=== PATIENT | female | born 1990 | race Two or more races ===

== ENCOUNTER → 2025-05-06 | Outpatient (CLI) | payer BC, SELFPAY ==
[2025-05-06 11:38] LABS: Collection Type, Urine Clean Catch
[2025-05-06 12:52] LABS: Basophils # (Auto) 0.0 Thou/mm3 (0.0-0.2); Basophils % (Auto) 1 % (0-2.5); Eosinophils # (Auto) 0.2 Thou/mm3 (0.0-0.5); Eosinophils % (Auto) 2 % (0-10); Hematocrit 36.7 % (36.0-46.0); Hemoglobin 11.9 g/dL (12.0-16.0); Immature Granulocytes Auto 0.04 Thou/mm3 (0.00-0.00); Lymphocytes # (Auto) 2.0 Thou/mm3 (1.0-4.8); Lymphocytes % (Auto) 32 % (10-50); Mean Corpuscular HGB Conc 32.4 g/dl (31.0-37.0); Mean Corpuscular Hemoglobin 24.8 pg (25.0-35.0); Mean Corpuscular Volume 77 fL (80-100); Monocytes # (Auto) 0.4 Thou/mm3 (0.0-0.8); Monocytes % (Auto) 7 % (0-12); Neutrophils # (Auto) 3.5 Thou/mm3 (1.8-7.7); Neutrophils % (Auto) 58 % (37-80); Nucleated Red Blood Cell # 0.00 Thou/mm3 (0.00-0.00); Nucleated Red Blood Cell % 0 /100 WBC (0); Platelet Count 249 Thou/mm3 (140-440); RDW Standard Deviation 38.7 fL (36.4-46.3); Red Blood Count 4.79 Miln/mm3 (4.00-5.20); White Blood Count 6.2 Thou/mm3 (3.6-11.0)
[2025-05-06 13:10] LABS: Alanine Aminotransferase 41 U/L (10-49); Albumin, Serum 4.4 gm/dL (3.5-5.0); Albumin/Globulin Ratio 1.6 (1.2-2.2); Alkaline Phosphatase 37 U/L (46-116); Anion Gap 10 (7-16); Aspartate Amino Transferase 26 U/L (0-34); BUN/Creatinine Ratio 13 Ratio (12-20); Bilirubin,Total 0.6 mg/dL (0.3-1.2); Blood Urea Nitrogen 10 mg/dL (9-23); Calcium 9.2 mg/dL (8.3-10.6); Calcium (Corrected) 9.2 mg/dL (8.5-10.1); Carbon Dioxide 25.2 mMol/L (20.0-31.0); Cardiac Risk Estimate 2.5 RATIO (3.7-5.6); Chloride 107 mMol/L (98-107); Cholesterol 171 mg/dL (132-200); Creatinine (Component) 0.8 mg/dL (0.6-1.3); Globulin 2.8 gm/dL (2.3-3.5); Glucose 95 mg/dL (74-106); HDL Cholesterol 68 mg/dL (40-60); LDL Cholesterol,Calculated 78 mg/dL (0-130); Osmolality,Calculated 282 (275-295); Potassium 3.9 mMol/L (3.4-5.1); Sodium 142 mMol/L (136-145); Total Protein 7.2 gm/dL (5.7-8.2); Triglycerides 123 mg/dL (30-150); eGFR > 60 See Note
[2025-05-06 13:38] LABS: Bacteria,Urine Rare; Bilirubin,Urine Negative (Negative); Blood,Urine 1+ (Negative); Clarity,Urine Clear (Clear/Hazy); Color,Urine Lt-Yellow (Lt Yel-Yel); Glucose, Urine Negative (Negative); Ketones,Urine Negative (Negative); Leukocyte Esterase,Urine Positive (Negative); Nitrite,Urine Negative (Negative); PH,Urine 5.0 (5.0-7.0); Protein,Urine Negative (Neg - Trace); RBC,Urine 1 /hpf (0-3); Specific Gravity,Urine 1.025 (1.001-1.035); Squamous Epithelial Cell,Urine 10 /hpf (0-5); Urobilinogen,Urine Negative mg/dL (0.0-1.0); WBC,Urine 9 /hpf (0-5)
== END | disposition home or self-care (01) ==
LOC: COPL 10:59
PROVIDERS: PCP Family Medicine; Referring Provider Family Medicine; Visit Provider Family Medicine
DX: Z00.00 Encounter for general adult medical examination without abnormal findings (principal); D64.9 Anemia, unspecified
CPT/HCPCS: 36415; 80053; 80061; 81001; 85025